=== PATIENT | female | born 1940 | race Caucasian/White ===

== ENCOUNTER 2018-07-14 18:57 | Emergency (ER) | payer MEDICARE, MEDICAID ==
[~2018-07-14] VITALS: Ht 170.2 cm; Wt 80.5 kg
[~2018-07-14 18:57] MED LIST: DICL250 PO; IBUP-2343 PO; TRAM50TA4 PO
[2018-07-14] MEDS ORDERED: HTN PO (19:04)
[2018-07-14] MEDS ORDERED: KETOROLAC TROMETHAMINE 30 MG/ML VIAL IM ONE (20:00)
[2018-07-14 21:12] VITALS: BP 143/99
[2018-07-14] MEDS ORDERED: TraMADol HCL 50 MG TABLET PO ONE (21:15)
== END 2018-07-14 21:16 | disposition home or self-care (01) ==
LOC: EMS 18:58
DX: M25.462 Effusion, left knee (principal); I10 Essential (primary) hypertension; Z79.899 Other long term (current) drug therapy
CPT/HCPCS: 73562; 96372; 99284; J1885; 29530

== ENCOUNTER 2018-10-13 12:30 | Emergency (ER) | payer MEDICARE, MEDICAID ==
[~2018-10-13] VITALS: Ht 170.2 cm; Wt 80.9 kg
[~2018-10-13 12:30] MED LIST changes: -DICL250 PO; +HTN PO; -IBUP-2343 PO; -TRAM50TA4 PO
[2018-10-13] MEDS ORDERED: HYDR25TA PO (12:37)
[2018-10-13] MEDS ORDERED: ACETAMINOPHEN 500 MG TABLET PO ONE (13:00)
[2018-10-13] MEDS ORDERED: HydrOXYzine PAMOATE 50 MG CAPSULE PO ONE (13:00)
[2018-10-13 13:40] VITALS: BP 121/70
== END 2018-10-13 14:11 | disposition home or self-care (01) ==
LOC: EMS 12:30
DX: S99.911A Unspecified injury of right ankle, initial encounter (principal); B34.9 Viral infection, unspecified; I10 Essential (primary) hypertension; W19.XXXA Unspecified fall, initial encounter; Y93.89 Activity, other specified; Y92.89 Other specified places as the place of occurrence of the external cause; Y99.8 Other external cause status
CPT/HCPCS: 29515; 93005

== ENCOUNTER 2019-04-24 17:09 | Emergency (ER) | payer MEDICARE, MEDICAID, OTHER ==
[~2019-04-24] VITALS: Ht 167.6 cm; Wt 72.7 kg
[~2019-04-24 17:09] MED LIST changes: +HYDR25TA PO
[2019-04-24] MEDS: LIDOCAINE 1% 10 ML VIAL INJ ONE (18:29)
[2019-04-24 19:37] VITALS: BP 144/73
== END 2019-04-24 19:43 | disposition home or self-care (01) ==
LOC: EMS 17:10
DX: S01.511A Laceration without foreign body of lip, initial encounter (principal); I10 Essential (primary) hypertension; Z79.899 Other long term (current) drug therapy; W01.198A Fall on same level from slipping, tripping and stumbling with subsequent striking against other object, initial encounter; Y93.01 Activity, walking, marching and hiking; Y92.89 Other specified places as the place of occurrence of the external cause; Y99.8 Other external cause status
CPT/HCPCS: 12011; 99283; J3490

== ENCOUNTER 2019-04-26 08:58 | Emergency (ER) | payer MEDICARE, MEDICAID ==
[~2019-04-26] VITALS: Ht 162.6 cm; Wt 76.4 kg
[~2019-04-26 08:58] MED LIST changes: -HTN PO
[2019-04-26 09:36] VITALS: BP 115/61
== END 2019-04-26 09:40 | disposition home or self-care (01) ==
LOC: EMS 09:00
DX: S01.511D Laceration without foreign body of lip, subsequent encounter (principal); I10 Essential (primary) hypertension; W19.XXXD Unspecified fall, subsequent encounter

== ENCOUNTER 2023-01-28 18:33 | Emergency (ER) | payer MEDICARE, MEDICAID ==
[~2023-01-28] VITALS: Ht 170.2 cm; Wt 75.0 kg
[~2023-01-28 18:33] MED LIST changes: -HYDR25TA PO; +HYDR25TA2 PO
[2023-01-28] MEDS ORDERED: PERTUSS(ACELL),DIPH,TET VAC/PF 0.5 ML SYRINGE IM. ONE (21:15)
[2023-01-28] MEDS ORDERED: BACITRACIN 0.9 GM PACKET OINTMENT TP ONE (21:15)
[2023-01-28] MEDS ORDERED: LIDOCAINE 1% 10 ML VIAL SQ ONE (21:15)
[2023-01-28 22:01] VITALS: BP 157/93
== END 2023-01-28 22:03 | disposition home or self-care (01) ==
LOC: EMS 18:34
DX: S01.511A Laceration without foreign body of lip, initial encounter (principal); M19.90 Unspecified osteoarthritis, unspecified site; I10 Essential (primary) hypertension; W01.0XXA Fall on same level from slipping, tripping and stumbling without subsequent striking against object, initial encounter; Y93.89 Activity, other specified; Y92.89 Other specified places as the place of occurrence of the external cause; Y99.8 Other external cause status
CPT/HCPCS: 99283; 90715; 90471; 12011; J3490

== ENCOUNTER 2023-02-02 08:45 | Emergency (ER) | payer MEDICARE, MEDICAID ==
[~2023-02-02] VITALS: Ht 162.6 cm; Wt 71.8 kg
[2023-02-02 08:48] VITALS: BP 161/109
[2023-02-02] MEDS ORDERED: CHLO25TA3 PO (08:51)
[2023-02-02] MEDS ORDERED: PANT40TA54 PO (08:51)
[2023-02-02] MEDS ORDERED: BACITRACIN 0.9 GM PACKET OINTMENT TP ONE (09:45)
== END 2023-02-02 09:55 | disposition home or self-care (01) ==
LOC: EMS 08:48
DX: S00.501D Unspecified superficial injury of lip, subsequent encounter (principal); M19.90 Unspecified osteoarthritis, unspecified site; I10 Essential (primary) hypertension; Z48.02 Encounter for removal of sutures; X58.XXXD Exposure to other specified factors, subsequent encounter
CPT/HCPCS: 99282; Z7502; Z7610

== ENCOUNTER 2024-11-23 16:26 | Emergency (ER) | payer MEDICARE, MEDICAID ==
[~2024-11-23] VITALS: Ht 165.1 cm; Wt 63.6 kg
[~2024-11-23 16:26] MED LIST changes: +CHLO25TA3 PO; -HYDR25TA2 PO; +PANT40TA54 PO
[2024-11-23 16:44] VITALS: TEMP 98.2
[2024-11-23 18:38] VITALS: BP 138/91; PULSE 88; RESP 18; O2SAT 99
== END 2024-11-23 18:40 | disposition home or self-care (01) ==
LOC: EMS 16:26
DX: S01.511D Laceration without foreign body of lip, subsequent encounter (principal); Z48.02 Encounter for removal of sutures; I10 Essential (primary) hypertension; Z79.899 Other long term (current) drug therapy; X58.XXXD Exposure to other specified factors, subsequent encounter
CPT/HCPCS: 99282; Z7502